=== PATIENT | female | born 2000 | race African-American/Black ===

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

== ENCOUNTER 2025-05-16 16:21 | Emergency (ER) | payer OTHER, SELFPAY ==
[2025-05-16 18:18] LABS: Bacteria/HPF None Seen HPF (None Seen); CAUTI Indications for Culture Acute Hematuria; Glucose, Urine (Dipstick) Normal (Negative); Leukocyte Negative Leu/uL (Negative); Pregnancy Test - Urine (BHCG) Negative (Negative); Pregu Control Background? CLEAR/WHITE (CLR/WHITE); Pregu Control Bar Appear? YES (CONTROL BAR); Protein, Urine (Dipstick) Negative (Neg-Trace); RBC/HPF None Seen HPF (0-3); Specific Gravity, Urine 1.012 (1.002-1.036); WBC/HPF 0-3 HPF (0-3)
[2025-05-16 18:19] LABS: Urine Culture Reflex No No
[2025-05-16 23:52] LABS: Chlamydia by PCR, Vaginal Swab Not Detected (NotDetected); GC by PCR, Vaginal Swab Not Detected (NotDetected)
== END 2025-05-16 19:19 | disposition home or self-care (01) ==
LOC: ERS 16:21
DX: R30.0 Dysuria (principal)
CPT/HCPCS: 81001; 81025; 87480; 87491; 87510; 87591; 87660

== ENCOUNTER 2025-06-16 03:05 | Emergency (ER) | payer SELFPAY ==
[2025-06-16] MEDS ORDERED: cefTRIAXone (ROCEPHIN) 500 MG VIAL ONE (03:47)
[2025-06-16 04:01] LABS: Bacteria/HPF 4+ HPF (None Seen); CAUTI Indications for Culture Dysuria,urgency,freq; Glucose, Urine (Dipstick) Normal (Negative); Leukocyte 250 Leu/uL (Negative); Protein, Urine (Dipstick) 20 mg/dL (Neg-Trace); Specific Gravity, Urine 1.036 (1.002-1.036)
[2025-06-16 04:03] LABS: Urine Culture Reflex Yes Yes
[2025-06-16 14:45] LABS: Chlamydia by PCR, Vaginal Swab Not Detected (NotDetected); GC by PCR, Vaginal Swab Not Detected (NotDetected)
== END 2025-06-16 03:55 | disposition home or self-care (01) ==
LOC: ERS 03:05
DX: Z11.3 Encounter for screening for infections with a predominantly sexual mode of transmission (principal)
CPT/HCPCS: 81001; 87077; 87086; 87186; 87480; 87491; 87510; 87591; 87660; 96372; 99283; J0696